=== PATIENT | female | born 1980 | race Caucasian/White ===

== ENCOUNTER 2018-12-08 19:11 | Emergency (ER) | payer MEDICAID ==
[~2018-12-08] VITALS: Ht 157.5 cm; Wt 79.4 kg
[2018-12-08 19:19] VITALS: BP 160/84
--- NOTE | 2018-12-08 19:25 | NUR ---
BIB SELF. AAO X4 C/O NECK PAIN RADIATING TO R BACK SIDE OF THE HEAD AND NAUSEA SINCE YESTERDAY. DENIES INJURY OR TRAUMA TO AREA. + ROM ON NECK. PT IS AMBULATORY, AWAKE AND ALERT. PT DENIES VOMITING, FEVER, SOB. HOB UP. BED SIDE RAILS UP X1. ON LOW BED POSITION, LOCKED. ER TO EVALUATE PT.
--- NOTE | 2018-12-08 19:36 | NUR ---
NERY FERREIRA AT BEDSIDE FOR PT EVAL
[2018-12-08] MEDS ORDERED: KETOROLAC 60 MG/2 ML VIAL IM ONE (19:40)
--- NOTE | 2018-12-08 20:09 | NUR ---
NERY FERREIRA AT BEDSIDE FOR PT RE EVALUATION
[2018-12-08 20:12] VITALS: BP 148/82
== END 2018-12-08 20:12 | disposition home or self-care (01) ==
LOC: MED 19:11
DX: G44.209 Tension-type headache, unspecified, not intractable (principal); Z85.3 Personal history of malignant neoplasm of breast; Z88.1 Allergy status to other antibiotic agents
CPT/HCPCS: 81025; 96372; 99283; J1885

== ENCOUNTER 2019-04-24 01:10 | Emergency (ER) | payer MEDICAID ==
[~2019-04-24] VITALS: Ht 154.9 cm; Wt 79.4 kg
[2019-04-24 01:15] VITALS: BP 165/81
[2019-04-24] MEDS ORDERED: SULFAMETH/TRIMETH DS 800/160MG 1 TAB PO ONE (01:35)
[2019-04-24] MEDS ORDERED: IBUPROFEN 800 MG TAB PO ONE (01:35)
[2019-04-24 03:02] VITALS: BP 148/78
== END 2019-04-24 03:02 | disposition home or self-care (01) ==
LOC: MED 01:10
DX: S90.561A Insect bite (nonvenomous), right ankle, initial encounter (principal); L03.115 Cellulitis of right lower limb; Z98.890 Other specified postprocedural states; Z88.1 Allergy status to other antibiotic agents; W57.XXXA Bitten or stung by nonvenomous insect and other nonvenomous arthropods, initial encounter; Y92.89 Other specified places as the place of occurrence of the external cause; Y93.89 Activity, other specified; Y99.8 Other external cause status
CPT/HCPCS: 36415; 73610; 84550; 99284; J7060; Q0092